=== PATIENT | male | born 2000 | race Caucasian/White ===

== ENCOUNTER 2019-10-23 12:15 | Emergency (ER) | payer SELFPAY ==
[~2019-10-23] VITALS: Ht 182.9 cm; Wt 74.8 kg
[~2019-10-23 12:15] MED LIST: AMOX250 PO; CEPH250SUA PO; CLIN300 PO; CODACEE120 PO; SACC250C PO
== END 2019-10-23 13:02 | disposition home or self-care (01) ==
LOC: ER 12:15
DX: S61.217A Laceration without foreign body of left little finger without damage to nail, initial encounter (principal); Z23 Encounter for immunization; W25.XXXA Contact with sharp glass, initial encounter; Y99.0 Civilian activity done for income or pay
CPT/HCPCS: 12001; 90471; 90714; 99282-25